=== PATIENT | female | born 1965 | race Caucasian/White ===

== ENCOUNTER 2017-06-26 19:18 | Emergency (ER) | payer OTHER ==
[2017-06-26 21:10] LABS: UA SPECIFIC GRAVITY 1.015 (1.005-1.035); microscopic required? YES; urine erythrocyte TRACE (NEGATIVE)
[2017-06-26 21:19] LABS: BASOPHIL % 0.3 % (0-2); PLATELET COUNT 270 x10^3mcL (130-400); RED CELL DISTRIBUTION WIDTH 12.9 % (11.5-14.5)
[2017-06-26 21:32] LABS: CARBON DIOXIDE 28.1 mmol/L (21-32); CHLORIDE SERUM 104 mmol/L (98-107); CREATININE SERUM 0.9 mg/dL (0.6-1.0); GFR1 > 60 mL/min; GLUCOSE SERUM 88 mg/dL (74-106); POTASSIUM SERUM 4.1 mmol/L (3.5-5.1); SODIUM SERUM 143 mmol/L (136-145)
[2017-06-26 21:37] LABS: ALBUMIN 4.1 g/dL (3.4-5.0); ALKALINE PHOSPHATASE 74 U/L (46-116); ALT/SGPT 27 U/L (14-59); AMYLASE 71 U/L (25-115); AST/SGOT 20 U/L (15-37); BILIRUBIN TOTAL 0.4 mg/dL (0.20-1.00); LIPASE 347 IU/L (73-393); TOTAL PROTEIN, SERUM 8.2 g/dL (6.4-8.2)
[2017-06-26 22:46] VITALS: BP 122/76
== END 2017-06-26 22:46 | disposition home or self-care (01) ==
LOC: ED 19:18
PROVIDERS: Emergency Medicine
DX: N23 Unspecified renal colic (principal); L50.9 Urticaria, unspecified
CPT/HCPCS: 36415; J0171; J7512; Q0163

== ENCOUNTER → 2017-06-29 | Outpatient (CLI) | payer OTHER | END | disposition home or self-care (01) | LOC: CT 09:00 | PROC: BW21ZZZ Computerized Tomography (CT Scan) of Abdomen and Pelvis (ICD-10-PCS; principal; 2017-06-29) | DX: R31.9 Hematuria, unspecified (principal) ==

== ENCOUNTER 2017-09-19 12:56 | Emergency (ER) | payer OTHER ==
[2017-09-19 13:45] LABS: BASOPHIL % 0.4 % (0-2); PLATELET COUNT 271 x10^3mcL (130-400); RED CELL DISTRIBUTION WIDTH 12.8 % (11.5-14.5)
[2017-09-19 13:46] LABS: UA SPECIFIC GRAVITY 1.015 (1.005-1.035); microscopic required? YES; urine erythrocyte TRACE (NEGATIVE)
[2017-09-19 14:02] LABS: CALCIUM 9.1 mg/dL (8.5-10.1); CARBON DIOXIDE 25.7 mmol/L (21-32); CHLORIDE SERUM 106 mmol/L (98-107); CREATININE SERUM 0.8 mg/dL (0.6-1.0); GFR1 > 60 mL/min; GLUCOSE SERUM 86 mg/dL (74-106); POTASSIUM SERUM 3.9 mmol/L (3.5-5.1); SODIUM SERUM 140 mmol/L (136-145)
[2017-09-19 14:06] LABS: ALBUMIN 3.8 g/dL (3.4-5.0); ALKALINE PHOSPHATASE 84 U/L (46-116); ALT/SGPT 41 U/L (14-59); AST/SGOT 27 U/L (15-37); BILIRUBIN TOTAL 0.7 mg/dL (0.20-1.00); TOTAL PROTEIN, SERUM 8.2 g/dL (6.4-8.2)
[2017-09-19 16:49] VITALS: BP 127/60
== END 2017-09-19 16:49 | disposition home or self-care (01) ==
LOC: ED 12:56
PROVIDERS: Emergency Medicine
DX: R10.84 Generalized abdominal pain (principal)
CPT/HCPCS: J1885; J3010; Q0092

== ENCOUNTER → 2017-10-06 | Outpatient (CLI) | payer OTHER ==
[2017-10-06 10:49] LABS: CALCIUM 8.9 mg/dL (8.5-10.1); PHOSPHOROUS 4.8 mg/dL (2.5-4.9)
[2017-10-06 10:51] LABS: C REACTIVE PROTEIN < 0.2 mg/dL (<=0.9)
[2017-10-07 13:22] LABS: RHEUMATOID ARTHRITIS FACTOR <10.0 IU/mL (0.0-13.9)
== END | disposition home or self-care (01) ==
LOC: LB 08:57
PROVIDERS: Family Medicine
DX: M25.50 Pain in unspecified joint (principal)
CPT/HCPCS: 86431

== ENCOUNTER → 2017-10-13 | Outpatient (CLI) | payer OTHER | END | disposition home or self-care (01) | LOC: MI 09:16 | PROC: B030YZZ Magnetic Resonance Imaging (MRI) of Brain using Other Contrast (ICD-10-PCS; principal; 2017-10-13) | DX: H53.123 Transient visual loss, bilateral (principal); M62.81 Muscle weakness (generalized) | CPT/HCPCS: A9577 ==

== ENCOUNTER → 2018-05-17 | Outpatient (CLI) | payer OTHER ==
[2018-05-17 09:37] LABS: ALKALINE PHOSPHATASE 86 U/L (46-116); ALT/SGPT 25 U/L (14-59); AST/SGOT 21 U/L (15-37); BILIRUBIN TOTAL 0.49 mg/dL (0.20-1.00); CALCIUM 9.1 mg/dL (8.5-10.1); CARBON DIOXIDE 25.4 mmol/L (21-32); CHLORIDE SERUM 109 mmol/L (98-107); CHOLESTEROL 198 mg/dL (<200); GFR1 > 60 mL/min; GLUCOSE SERUM 83 mg/dL (74-106); POTASSIUM SERUM 3.8 mmol/L (3.5-5.1); SODIUM SERUM 144 mmol/L (136-145); TOTAL PROTEIN, SERUM 7.9 g/dL (6.4-8.2); TRIGLYCERIDES 57 mg/dL (<150)
[2018-05-17 09:38] LABS: BASOPHIL % 0.7 % (0-2); PLATELET COUNT 297 x10^3mcL (130-400); RED BLOOD CELLS 4.55 M/mm3 (4.10-5.10); RED CELL DISTRIBUTION WIDTH 12.8 % (11.5-14.5)
[2018-05-17 09:40] LABS: CHOLESTEROL/HDL RATIO 2.6; HDL CHOLESTEROL 77 mg/dL (40-60)
[2018-05-17 09:47] LABS: FREE T4 0.85 ng/dL (0.76-1.46); FREE THYROXINE INDEX 2.1 ug/dL (1.4-4.5); T4(THYROXINE) 6.3 ug/dL (4.7-13.3)
[2018-05-17 11:08] LABS: T3 TOTAL 1.18 ng/mL
[2018-05-17 11:38] LABS: IRON 75 ug/dL (50-170); TOTAL IRON BINDING CAPACITY 286 ug/dL (250-450)
[2018-05-18 05:05] LABS: VITAMIN D 25-HYDROXY 30.5 ng/mL (30.0-100.0)
== END | disposition home or self-care (01) ==
LOC: LB 08:25
DX: Z00.00 Encounter for general adult medical examination without abnormal findings (principal); M25.521 Pain in right elbow
CPT/HCPCS: 84439

== ENCOUNTER → 2019-06-13 | Outpatient (CLI) | payer OTHER | END | disposition home or self-care (01) | LOC: MA 08:42 | PROC: BH02ZZZ Plain Radiography of Bilateral Breasts (ICD-10-PCS; principal; 2019-06-13) | DX: Z12.31 Encounter for screening mammogram for malignant neoplasm of breast (principal) | CPT/HCPCS: 77067 ==

== ENCOUNTER → 2019-07-19 | Outpatient (CLI) | payer OTHER | END | disposition home or self-care (01) | LOC: LB 17:32 | DX: L27.2 Dermatitis due to ingested food (principal) | CPT/HCPCS: 82785 ==

== ENCOUNTER → 2020-06-26 | Outpatient (CLI) | payer OTHER ==
[2020-06-26 09:07] LABS: BASOPHIL % 0.8 % (0-2); PLATELET COUNT 280 x10^3mcL (130-400); RED CELL DISTRIBUTION WIDTH 13.4 % (11.5-14.5)
[2020-06-26 09:54] LABS: ALKALINE PHOSPHATASE 77 U/L (46-116); ALT/SGPT 28 U/L (14-59); AST/SGOT 27 U/L (15-37); BILIRUBIN DIRECT 0.16 mg/dL (0.0-0.2); BILIRUBIN TOTAL 0.8 mg/dL (0.20-1.00); CALCIUM 9.2 mg/dL (8.5-10.1); CARBON DIOXIDE 26.7 mmol/L (21-32); CHLORIDE SERUM 106 mmol/L (98-107); CHOLESTEROL 205 mg/dL (<200); CHOLESTEROL/HDL RATIO 2.5; CREATININE SERUM 0.8 mg/dL (0.6-1.0); GFR1 > 60 mL/min; GLUCOSE SERUM 87 mg/dL (74-106); HDL CHOLESTEROL 82 mg/dL (40-60); POTASSIUM SERUM 3.8 mmol/L (3.5-5.1); SODIUM SERUM 142 mmol/L (136-145); TOTAL PROTEIN, SERUM 7.9 g/dL (6.4-8.2); TRIGLYCERIDES 50 mg/dL (<150)
== END | disposition home or self-care (01) ==
LOC: LB 08:28
DX: Z00.00 Encounter for general adult medical examination without abnormal findings (principal)

== ENCOUNTER → 2020-07-14 | Outpatient (CLI) | payer OTHER | END | disposition home or self-care (01) | LOC: MA 09:09 | PROVIDERS: ATTEND Internal Medicine | PROC: BH02ZZZ Plain Radiography of Bilateral Breasts (ICD-10-PCS; principal; 2020-07-14) | DX: Z12.31 Encounter for screening mammogram for malignant neoplasm of breast (principal) | CPT/HCPCS: 77067 ==